=== PATIENT | female | born 2000 | race Caucasian/White ===

== ENCOUNTER 2022-03-25 17:12 | Outpatient (CLI) | payer MEDICAID ==
[~2022-03-25] VITALS: Ht 152.4 cm; Wt 84.1 kg
[~2022-03-25 17:12] MED LIST: PRENATAL TABLET PO; PROFERRIN ES12 MG PO
[2022-03-25 17:50] VITALS: BP 117/68; PULSE 86; TEMP 97.9
--- NOTE | 2022-03-25 18:45 | NUR ---
PT WAS RECHECKED WITH NO CERVICAL CHANGE. BABY IS VERY HIGH AND CERVIX IS POSTERIOR. MONITORS TAKEN OFF, PT UP TO GET DRESSED. PT GIVEN DISCHARGE INSTRUCTIONS BOTH VERBAL AND WRITTEN. PT AMB OFF THE UNIT WITH BOYFRIEND.
== END 2022-03-25 18:55 | disposition home or self-care (01) ==
LOC: LDRO 17:12
DX: Z34.93 Encounter for supervision of normal pregnancy, unspecified, third trimester (principal); Z3A.39 39 weeks gestation of pregnancy

== ENCOUNTER 2022-03-31 05:14 | Inpatient (IN) | payer MEDICAID ==
[2022-03-31] VITALS (23 sets, daily range): BP systolic 106–160; BP diastolic 56–102; PULSE 63–108; TEMP 97.7–98.8
[~2022-03-31] VITALS: Ht 167.6 cm; Wt 85.9 kg
--- NOTE | 2022-03-31 05:20 | NUR ---
G1L0. 40.3. Wheeled to LDR 4. Clean gown on. Pt screaming with contractions in pain. Pt states "I was here yesterday and having a lot of contractions and pain and they just sent me home." EFM and TOCO applied. Pt states contractions are "." Reports "pink tinged discharge." Denies leaking of fluids. Reports good movement. SVE completed. 0535: called and updated on pt status. See physican notification. 0550: IV started and labs obtained. LR bolus infusing. Pt continues to be very tearful and screaming with contractions. Requesting pain medication. Educated pt on receiving pain medication prior to . Pt verbalized her understanding. 0625: Pt baring down after using restroom. SVE 5-//-2. Asked patient at this time if she still wanted to continue with an elevtive and pt states "YES, I am having a ." Report given to Lexii Taylor RN and García DUMONT.
[2022-03-31 06:17] LABS: BASO % 0.2 % (0.0-2.0); EOS % 0.4 % (0.0-4.0); GRAN # 8.1 K/mm3 (1.4-6.5); GRAN % 74.2 % (42.2-75.2); HEMOGLOBIN 11.6 g/dl (12.0-15.0); LYMPH # 1.6 K/mm3 (1.2-3.4); LYMPH % 14.6 % (20.0-51.0); MEAN CELL VOLUME 82 fl (80.0-95.0); MEAN CORPUSCULAR HEMOGLOBIN 27 pg (26-32); MEAN CORPUSCULAR HGB CONC 33 g/dl (33.0-37.0); MEAN PLATELET VOLUME 9.9 fl (7.4-10.4); MONO # 1.1 K/mm3 (0.1-0.6); MONO % 9.8 % (1.7-9.3); PLATELET COUNT 312 K/mm3 (130-400); RED BLOOD COUNT 4.34 M/mm3 (4.10-5.30); REDCELL DISTRIBUTION WIDTH-CV 14.6 % (11.5-14.5)
[2022-03-31 06:23] LABS: HEMATOCRIT 35.5 % (35.0-45.0)
--- NOTE | 2022-03-31 06:45 | NUR ---
EFM TRACING INDESCERNIBLE. MONITOR ADJUSTED. CARE ONGOING.
[2022-04-01] VITALS: BP 112/72; PULSE 94; TEMP 98.3
[2022-04-01 07:23] VITALS: BP 114/68; PULSE 76; TEMP 98.2
--- NOTE | 2022-04-01 10:21 | NUR ---
Initial visit; Patient thanked Language Tutor for offering God's blessings for the of her son with a special blessing said for her son.
[2022-04-01 16:41] VITALS: BP 122/72; PULSE 111; TEMP 98.2
--- NOTE | 2022-04-01 19:00 | NUR ---
ENCOURAGED PT TO TAKE A SHOWER- PT STATES DR. DAUGHERTY SAID IF I FELT UP TO IT I COULD SHOWER AND I DON'T FEEL UP TO IT BECAUSE OF PAIN. I MEDICATED PT. AT 1930 AND AT 2029 SHE SAID HER PAIN WAS MUCH BETTER - I GOT EVERYTING READY FOR HER SHOWER BUT SHE STILL REFUSED TO SHOWER.
[2022-04-01 20:00] VITALS: BP 123/66; PULSE 100; TEMP 97.7
[2022-04-02 03:34] VITALS: BP 120/62; PULSE 72; TEMP 98.2
[2022-04-02 07:57] VITALS: BP 127/85; PULSE 100; TEMP 98.1
--- NOTE | 2022-04-02 12:47 | NUR ---
1215 REPORT GIVEN TO DIANNE FORD TO ASSUME CARE AT THIS TIME
[2022-04-02 16:26] VITALS: BP 129/83; PULSE 92; TEMP 98.2
[2022-04-02 21:30] VITALS: BP 132/85; PULSE 96; TEMP 98.6
[2022-04-03 07:45] VITALS: BP 123/91; PULSE 99; TEMP 97.3
[2022-04-03] MEDS ORDERED: PERCOCET 325 MG1 TA2 PO (08:21)
[2022-04-03] MEDS ORDERED: MOTRIN 800800 MG/TAB PO (08:21)
--- NOTE | 2022-04-03 11:30 | NUR ---
Discharge instructions, follow up care and boarder status reviewed with pt and significant other at the bedside. Both verbalized an understanding, agreed with the plan and states no questions or concerns at this time.
== END 2022-04-03 11:30 | disposition home or self-care (01) | DRG 788 ==
LOC: LDRO 05:14 → OB 05:41 → LDR 05:41 → OB 10:26
PROVIDERS: ADMIT Obstetrics & Gynecology
PROC: 10D00Z1 Extraction of Products of Conception, Low, Open Approach (ICD-10-PCS; principal; 2022-03-31)
DX: O36.63X0 Maternal care for excessive fetal growth, third trimester, not applicable or unspecified (principal); O48.0 Post-term pregnancy; Z3A.40 40 weeks gestation of pregnancy; Z37.0 Single live birth; O77.0 Labor and delivery complicated by meconium in amniotic fluid; F43.10 Post-traumatic stress disorder, unspecified; O99.344 Other mental disorders complicating childbirth; Z53.29 Procedure and treatment not carried out because of patient's decision for other reasons
CPT/HCPCS: J0171; J0690; J1885; J2175; J2370; J2405; J2590; J7120